=== PATIENT | female | born 1985 | race Caucasian/White ===

== ENCOUNTER 2017-02-09 11:58 | Emergency (ER) | payer SELFPAY ==
[~2017-02-09] VITALS: Ht 160 cm; Wt 65.8 kg
--- NOTE | 2017-02-09 12:33 | NUR ---
preganacy screen waived forcxr, pt having cxr now
--- NOTE | 2017-02-09 13:14 | NUR ---
mse completed, pt d/c'd home, aci/rx x2 given. pt got dressed and took all belonging.
[2017-02-09 13:16] VITALS: BP 117/72
== END 2017-02-09 13:17 | disposition home or self-care (01) ==
LOC: ER 12:22
DX: J18.9 Pneumonia, unspecified organism (principal)
CPT/HCPCS: 71020; 99284; A4663

== ENCOUNTER 2017-04-12 22:56 | Emergency (ER) | payer SELFPAY ==
[~2017-04-12] VITALS: Ht 160 cm; Wt 61.2 kg
[2017-04-12] MEDS ORDERED: LET TOPICAL SOLUTION 8 ML UDC TOP ONE (23:15)
[2017-04-12] MEDS ORDERED: LET TOPICAL SOLUTION 8 ML UDC ONE (23:26)
--- NOTE | 2017-04-13 00:01 | NUR ---
Patient discharged to home in stable conditon. Written and verbal after care instructions given. Patient verbalizes understanding of instructions.
== END 2017-04-13 00:02 | disposition home or self-care (01) ==
LOC: ER 22:57
DX: S61.411A Laceration without foreign body of right hand, initial encounter (principal); W25.XXXA Contact with sharp glass, initial encounter; Y93.89 Activity, other specified; Y99.8 Other external cause status; Y92.89 Other specified places as the place of occurrence of the external cause
CPT/HCPCS: 12001; 73130; 99284; A4663